=== PATIENT | male | born 1955 | race Hispanic/Latino ===

== ENCOUNTER → 2018-04-11 | Outpatient (CLI) | payer OTHER | END | disposition home or self-care (01) | LOC: SHCH 08:05 | PROVIDERS: ATTEND Internal Medicine Cardiovascular Disease | DX: I48.2 Chronic atrial fibrillation (principal); I25.2 Old myocardial infarction; I50.42 Chronic combined systolic (congestive) and diastolic (congestive) heart failure | CPT/HCPCS: 78481; A9512; J1644 ==

== ENCOUNTER 2018-09-01 07:12 | Inpatient (IN) | payer OTHER | END 2018-09-06 13:48 | disposition home or self-care (01) | LOC: DAH 07:12 → DAHIP 07:13 → 2CH 12:57 | PROC: 4A023N6 Measurement of Cardiac Sampling and Pressure, Right Heart, Percutaneous Approach (ICD-10-PCS; principal; ~2018-09-01) | PROC: B2141ZZ Fluoroscopy of Right Heart using Low Osmolar Contrast (ICD-10-PCS; ~2018-09-01) | PROC: B2101ZZ Fluoroscopy of Single Coronary Artery using Low Osmolar Contrast (ICD-10-PCS; ~2018-09-01) | DX: I27.20 Pulmonary hypertension, unspecified (principal); I50.41 Acute combined systolic (congestive) and diastolic (congestive) heart failure ==

== ENCOUNTER 2019-04-02 05:46 | Observation (INO) | payer OTHER ==
[2019-03-31 09:42] LABS: BASOPHILS % (AUTO) 0.5 % (0.0-5.0); EOSINOPHILS % (AUTO) 1.1 % (0.0-8.0); HEMATOCRIT 36.3 % (42-54); LYMPHOCYTES % (AUTO) 15.3 % (21.0-51.0); MEAN CORPUSCULAR HEMOGLOBIN 28.7 pg (27.0-33.0); MEAN CORPUSCULAR HGB CONC 33.5 g/dL (32.0-36.0); MEAN CORPUSCULAR VOLUME 85.7 fL (79-99); MONOCYTES % (AUTO) 9.5 % (3.0-13.0); NEUTROPHILS % (AUTO) 73.6 % (40.0-77.0); PLATELET COUNT (AUTO) 263 K/uL (130-400); RED BLOOD CELL COUNT(AUTO) 4.24 MIL/uL (4.50-6.20); RED CELL DISTRIBUTION WIDTH 15.6 % (11.0-15.5); WHITE BLOOD COUNT (AUTO) 8.3 K/uL (4.8-10.8)
[2019-03-31 09:46] VITALS: BP 90/52
[2019-03-31 09:51] LABS: POTASSIUM 4.4 mmol/L (3.5-5.1)
[2019-03-31 09:56] LABS: INR 1.17 (0.85-1.15); PARTIAL THROMBOPLASTIN TIME 27.6 SEC (26.3-35.5); PROTHROMBIN TIME 12.2 SEC (9.6-11.6)
--- NOTE | 2019-04-01 09:40 | NUR ---
ABNORMAL PT,INR REPORTED TO PA, PT IS TO STOP XARELTO 3 DAYS BEFORE PROCEDURE ORDERED,NO NEW ORDERS, PROCEED WITH PROCEDURE.
[2019-04-02] VITALS (10 sets, daily range): BP systolic 79–91; BP diastolic 48–56
[~2019-04-02] VITALS: Ht 160 cm; Wt 69.4 kg
[~2019-04-02 05:46] MED LIST: AEC81 PO; ATOR40TA71 PO; CARV6.2579 PO; FAMO20TA8 PO; FLUT1DIS3 IH; FURO40TA5 PO; METF-526 PO; OMEP20TA25 PO; RIVA20TA PO; SACU1TAB PO; SODIUM CHLORIDE 0.9% 500ML 500 ML IV SCH; SPIR25TA6 PO
[2019-04-02] MEDS ORDERED: CEFAZOLIN SODIUM 1 GM VIAL IVP SCH (06:00)
[2019-04-02] MEDS ORDERED: SODIUM CHLORIDE 0.9% 1000ML 1,000 ML IV ONE (06:16)
[2019-04-02] MEDS ORDERED: MIDAZOLAM HCL 1 MG/ML 2ML VIAL ONE ×2 (07:18→08:33)
[2019-04-02] MEDS ORDERED: CEFAZOLIN SODIUM 1 GM VIAL ONE (07:18)
[2019-04-02] MEDS ORDERED: LIDOCAINE HCL 1% MDV 50ML VIAL ONE (07:19)
[2019-04-02] MEDS ORDERED: BUPIVACAINE/PF 0.25% 30ML VIAL IJ ONE (07:19)
[2019-04-02] MEDS ORDERED: MEPERIDINE-PF 25 MG/ML SYG ONE ×2 (07:19→08:33)
[2019-04-02] MEDS ORDERED: TRAM50TA4 PO (09:40)
[2019-04-02] MEDS ORDERED: ACETAMINOPHEN-CODEINE 300/30MG TAB PO PRN (09:45)
--- NOTE | 2019-04-02 09:46 | NUR ---
POST-PROCEDURE RECEIVED FROM HOUSEKEEPING SUPERVISOR S/P DUAL ICD INSERTION TO DAY 14. AWAKE IN NO ACUTE DISTRESS. CONNECTED TO CONTINUOUS CARDIOPULMONARY MONITORING. DRESSING TO LEFT CHEST WALL WITH SCANT SANGINOUS DRAINAGE/AREA MARKED. SLING IN PLACE TO LEFT ARM. PT INSTRUCTED TO NOT ELEVATE LEFT ARM ABOVE SHOULDER LEVEL FOR 6 WEEKS. VERBALIZED UNDERSTANDING. SIDE RAILS UP X2, BED IN LOWEST POSITION, AND CALL LIGHT W/IN REACH.
[2019-04-02] MEDS: PANTOPRAZOLE SODIUM 40 MG TABLET.DR PO SCH (10:03)
[2019-04-02] MEDS ORDERED: VALSARTAN PO SCH (10:05)
[2019-04-02] MEDS ORDERED: SACUBITRIL PO SCH (10:05)
--- NOTE | 2019-04-02 10:30 | NUR ---
DIET ATE 100% OF BREAKFAST.
--- NOTE | 2019-04-02 10:30 | NUR ---
HYPOTENSION B/P 79/48, ASYMPTOMATIC. PT AAOX3. [facility]. CHRISTIANO MCCALL NOTIFIED. ORDERED TO CONTINUE TO MONITOR PT.
--- NOTE | 2019-04-02 11:00 | NUR ---
HYPOTENSION NOLAN HUANG UPDATED ON B/P . NO NEW ORDERS RECEIVED. PT ASYMPTOMATIC. AAOX3.
[2019-04-02] MEDS: ALBUTEROL SULFATE 0.083% 2.5 MG/3 ML INH IH SCH ×2 (12:08→19:11)
--- NOTE | 2019-04-02 12:33 | NUR ---
CONSULT NOLAN MOSQUEDA IN TO SEE PATIENT. PT UPDATED ON PLAN OF CARE. NOTIFIED OF B/P'S 79-80'S/40-50'S. NO NEW ORDERS RECEIVED. PT ASYMPTOMATIC. AAOX3.
--- NOTE | 2019-04-02 13:29 | NUR ---
REPORT REPORT CALLED TO FRITZ JOHNSTON USING SBAR/VERBALIZED UNDERSTANDING.
--- NOTE | 2019-04-02 13:30 | NUR ---
TRANSFER TRANSFERRED TO ROOM 230 VIA BED. AWAKE IN NO ACUTE DISTRESS. DRESSING TO LEFT CHEST WALL DRY AND INTACT/SMALL AMOUNT OF SANGINOUS DRAINAGE MARKED, SITE SOFT. DENIES PAIN.
--- NOTE | 2019-04-02 14:10 | NUR ---
PATIENT AWAKE AND ALERT, FAMILY AT BEDSIDE, SLING TO LEFT ARM D/T ICD PLACEMENT, DRESSING IN PLACE WITH SCANT AMOUNT OF SEROSANGUINEOUS DRAINAGE, DENIES PAIN OR DISCOMFORT AT THIS TIME. BED TO LOWEST LEVEL AND LOCKED, INSTRUCTED HOW TO USE CALL LIGHT FOR ASSISTANCE, TELEMETRY AND BED ALARM ON.
--- NOTE | 2019-04-02 15:30 | NUR ---
PT BP AT 83/49, PATIENT RESTING, LAYING IN BED WITH EYES CLOSED, PATIENT DENIES ANY DISCOMFORT OR PAIN OR DIZZINESS, PT STATES HE USUALLY HAS LOW BLOOD PRESSURE.
[2019-04-02] MEDS: INSULIN HUMULIN R 100 UNIT/ML 3ML SQ SCH ×2 (16:30→21:00)
[2019-04-02] MEDS: METFORMIN HCL 500 MG TABLET PO SCH (17:00)
[2019-04-02] MEDS: BUDESONIDE 0.5 MG/2 ML INH IH SCH (19:23)
[2019-04-02] MEDS ORDERED: SUB TO BREO ELLIPTA 100MCG/25MCG PER P&T IH SCH (21:00)
[2019-04-02] MEDS ORDERED: ATORVASTATIN CALCIUM 40 MG TABLET PO SCH (21:00)
[2019-04-02] MEDS: SPIRONOLACTONE 25 MG TAB PO SCH (21:00)
[2019-04-03 00:07] VITALS: BP 101/63
[2019-04-03] MEDS: FAMOTIDINE 20MG TAB 20 MG TAB PO SCH ×2 (03:26→09:39)
[2019-04-03] MEDS: CARVEDILOL 6.25 MG TABLET PO SCH ×2 (03:26→09:00)
[2019-04-03 04:03] VITALS: BP 96/51
[2019-04-03 04:27] LABS: BASOPHILS % (AUTO) 0.4 % (0.0-5.0); EOSINOPHILS % (AUTO) 1.1 % (0.0-8.0); MEAN CORPUSCULAR HEMOGLOBIN 28.9 pg (27.0-33.0); MEAN CORPUSCULAR HGB CONC 33.8 g/dL (32.0-36.0); MEAN CORPUSCULAR VOLUME 85.6 fL (79-99); MONOCYTES % (AUTO) 8.9 % (3.0-13.0); NEUTROPHILS % (AUTO) 71.6 % (40.0-77.0); PLATELET COUNT (AUTO) 247 K/uL (130-400); RED BLOOD CELL COUNT(AUTO) 3.98 MIL/uL (4.50-6.20); RED CELL DISTRIBUTION WIDTH 15.9 % (11.0-15.5); WHITE BLOOD COUNT (AUTO) 6.9 K/uL (4.8-10.8)
[2019-04-03 04:36] LABS: POTASSIUM 3.9 mmol/L (3.5-5.1)
[2019-04-03] MEDS: ALBUTEROL SULFATE 0.083% 2.5 MG/3 ML INH IH SCH ×2 (06:01→11:18)
[2019-04-03] MEDS: BUDESONIDE 0.5 MG/2 ML INH IH SCH (06:01)
[2019-04-03] MEDS: INSULIN HUMULIN R 100 UNIT/ML 3ML SQ SCH (06:08)
[2019-04-03] MEDS: PANTOPRAZOLE SODIUM 40 MG TABLET.DR PO SCH (06:37)
--- NOTE | 2019-04-03 07:24 | NUR ---
refuse laborer team at bedside to picker and packer patient for procedure.
[2019-04-03 07:43] VITALS: BP 92/57
[2019-04-03] MEDS ORDERED: FUROSEMIDE 40 MG TABLET PO SCH (09:00)
[2019-04-03] MEDS ORDERED: ASPIRIN 81 MG EC TAB PO SCH (09:00)
[2019-04-03] MEDS: SPIRONOLACTONE 25 MG TAB PO SCH (09:40)
[2019-04-03] MEDS: METFORMIN HCL 500 MG TABLET PO SCH (09:42)
[2019-04-03 12:04] VITALS: BP 102/56
== END 2019-04-03 12:12 | disposition home or self-care (01) ==
LOC: DAH 05:46 → DAHIP 05:47 → 2AH 13:58
PROVIDERS: ADMIT Internal Medicine; ATTEND Internal Medicine
DX: I25.5 Ischemic cardiomyopathy (principal); I25.10 Atherosclerotic heart disease of native coronary artery without angina pectoris; I11.0 Hypertensive heart disease with heart failure; I50.42 Chronic combined systolic (congestive) and diastolic (congestive) heart failure; E11.9 Type 2 diabetes mellitus without complications; I48.91 Unspecified atrial fibrillation; I35.0 Nonrheumatic aortic (valve) stenosis; Z86.73 Personal history of transient ischemic attack (TIA), and cerebral infarction without residual deficits; Z95.1 Presence of aortocoronary bypass graft; Z95.2 Presence of prosthetic heart valve; Z79.01 Long term (current) use of anticoagulants; Z95.810 Presence of automatic (implantable) cardiac defibrillator; Z79.82 Long term (current) use of aspirin; Z79.4 Long term (current) use of insulin; Z79.899 Other long term (current) drug therapy
CPT/HCPCS: 33249; 36415 ×2; 71045; 80048 ×2; 82948 ×4; 85025 ×2; 85610; 85730; 94640 ×6; 94664; A4215; A4216; A4221; A4222; A4223 ×3; A4606; A4663; C1721; C1895 ×2; G0378 ×30; J0690; J2175 ×2; J2250 ×2; J3490 ×2; J7030; 99156; 99157

== ENCOUNTER 2020-12-14 05:58 | Day surgery (SDC) | payer OTHER ==
[2020-12-12 11:30] VITALS: BP 110/59
[2020-12-12 12:40] LABS: BASOPHILS % (AUTO) 0.6 % (0.0-5.0); EOSINOPHILS % (AUTO) 2.6 % (0.0-8.0); HEMATOCRIT 40.5 % (42-54); LYMPHOCYTES % (AUTO) 12.4 % (21.0-51.0); MEAN CORPUSCULAR HEMOGLOBIN 27.2 pg (27.0-33.0); MEAN CORPUSCULAR HGB CONC 31.6 g/dL (32.0-36.0); MEAN CORPUSCULAR VOLUME 86.2 fL (79-99); MONOCYTES % (AUTO) 9.5 % (3.0-13.0); NEUTROPHILS % (AUTO) 74.6 % (40.0-77.0); PLATELET COUNT (AUTO) 167 K/uL (130-400); RED CELL DISTRIBUTION WIDTH 16.1 % (11.0-15.5); WHITE BLOOD COUNT (AUTO) 6.9 K/uL (4.8-10.8)
[2020-12-12 12:48] LABS: CREATININE 1.2 mg/dL (0.5-1.5); POTASSIUM 3.8 mmol/L (3.5-5.1)
[2020-12-12 12:49] LABS: APPEARANCE,URINE Clear (CLEAR); BILIRUBIN,URINE Negative (NEGATIVE); COLOR,URINE Yellow (YELLOW); GLUCOSE, URINE (UA) >=1000 mg/dL (NEGATIVE); KETONES,URINE Negative (NEGATIVE); LEUKOCYTE ESTERASE ,URINE Negative (NEGATIVE); NITRATE,URINE Negative (NEGATIVE); OCCULT BLOOD,URINE Negative (NEGATIVE); PH,URINE 5.5 (5.0-8.0); PROTEIN,URINE Negative (NEGATIVE); UROBILINOGEN,URINE 0.2 mg/dL (0.2-1.0)
[2020-12-12 12:50] LABS: INR 1.21 (0.85-1.15)
[2020-12-12 12:52] LABS: PARTIAL THROMBOPLASTIN TIME 26.4 SEC (26.3-35.5)
[2020-12-12 12:56] LABS: BACTERIA,URINE None Seen /HPF (None Seen); RBC,URINE None Seen /HPF (0-1); SQUAMOUS EPITHELIAL CELL,UR Rare /HPF (0-2); WBC,URINE 0-1 /HPF (0-1)
[2020-12-14] VITALS (11 sets, daily range): BP systolic 101–150; BP diastolic 57–95
[~2020-12-14] VITALS: Ht 165.1 cm; Wt 74.6 kg
[~2020-12-14 05:58] MED LIST changes: +DAPA5TAB PO; -FAMO20TA8 PO; -SODIUM CHLORIDE 0.9% 500ML 500 ML IV SCH
[2020-12-14] MEDS ORDERED: 0.9%NACL 1000ML 1,000 ML IV SCH (08:00)
[2020-12-14] MEDS ORDERED: SODIUM BICARB 50MEQ 50ML VIAL 50 ML ONE (10:50)
[2020-12-14] MEDS ORDERED: NITROGLYCERIN 2 MG VIAL IV ONE (10:50)
[2020-12-14] MEDS ORDERED: FENTANYL CITRATE PF 50 MCG/1 ML 2ML VIAL ONE (10:51)
[2020-12-14] MEDS ORDERED: LIDOCAINE HCL 400MG/20ML VIAL ONE (10:51)
[2020-12-14] MEDS ORDERED: MIDAZOLAM HCL 1 MG/ML 2ML VIAL ONE (10:51)
[2020-12-14] MEDS ORDERED: FURO40TA5 PO (10:53)
[2020-12-14] MEDS ORDERED: HEPARIN 10,000 UNIT/10ML (1,000 UNIT/ML) VIAL ONE (11:56)
== END 2020-12-14 16:00 | disposition home or self-care (01) ==
LOC: DAH 05:58
PROVIDERS: ATTEND Internal Medicine Cardiovascular Disease
DX: I11.0 Hypertensive heart disease with heart failure (principal); I50.42 Chronic combined systolic (congestive) and diastolic (congestive) heart failure; I27.20 Pulmonary hypertension, unspecified; I25.10 Atherosclerotic heart disease of native coronary artery without angina pectoris; E11.9 Type 2 diabetes mellitus without complications; I44.0 Atrioventricular block, first degree; I45.10 Unspecified right bundle-branch block; I48.91 Unspecified atrial fibrillation; I25.2 Old myocardial infarction; Z79.82 Long term (current) use of aspirin; Z79.84 Long term (current) use of oral hypoglycemic drugs; Z79.899 Other long term (current) drug therapy; Z79.01 Long term (current) use of anticoagulants; Z86.73 Personal history of transient ischemic attack (TIA), and cerebral infarction without residual deficits; Z95.2 Presence of prosthetic heart valve; Z95.1 Presence of aortocoronary bypass graft; Z82.49 Family history of ischemic heart disease and other diseases of the circulatory system
CPT/HCPCS: 36415 ×2; 70450; 71045 ×2; 80048; 80053; 81001; 82550; 82948 ×3; 83874; 83880; 84484; 85025 ×2; 85610 ×2; 85730 ×2; 93005 ×2; 93451; 99285; A4215; A4216; A4221; A4222; A4223 ×3; A4606; A4663; C1894 ×3; J1644 ×2; J3490 ×2; J7030; J2250; J3010

== ENCOUNTER 2020-12-14 07:56 | Emergency (ER) | payer OTHER ==
[~2020-12-14] VITALS: Ht 165.1 cm; Wt 73.9 kg
[2020-12-14 08:05] VITALS: BP 142/93
[2020-12-14 08:41] VITALS: BP 129/83
[2020-12-14 08:43] LABS: BASOPHILS % (AUTO) 0.5 % (0.0-5.0); EOSINOPHILS % (AUTO) 12.5 % (0.0-8.0); LYMPHOCYTES % (AUTO) 13.7 % (21.0-51.0); MEAN CORPUSCULAR HEMOGLOBIN 27.2 pg (27.0-33.0); MEAN CORPUSCULAR HGB CONC 30.9 g/dL (32.0-36.0); MEAN CORPUSCULAR VOLUME 87.9 fL (79-99); MONOCYTES % (AUTO) 9.4 % (3.0-13.0); NEUTROPHILS % (AUTO) 63.6 % (40.0-77.0); PLATELET COUNT (AUTO) 157 K/uL (130-400); RED BLOOD CELL COUNT(AUTO) 4.89 MIL/uL (4.50-6.20); WHITE BLOOD COUNT (AUTO) 7.8 K/uL (4.8-10.8)
[2020-12-14 08:54] LABS: CARBON DIOXIDE 26 mmol/L (21-32); CHLORIDE 105 mmol/L (101-111); CREATININE 1.1 mg/dL (0.5-1.5); GLOMERULAR FILTR. RATE CALC 71 mL/min (>60); GLUCOSE,RANDOM 132 mg/dL (70-105); POTASSIUM 4.3 mmol/L (3.5-5.1); SODIUM SERUM 140 mmol/L (136-145); UREA NITROGEN, BLOOD 27 mg/dL (7-18)
[2020-12-14 08:56] LABS: INR 1.24 (0.85-1.15); PROTHROMBIN TIME 13.3 SEC (9.6-11.6)
[2020-12-14 08:57] LABS: PARTIAL THROMBOPLASTIN TIME 26.7 SEC (26.3-35.5)
[2020-12-14 09:05] LABS: ALANINE AMINOTRANSFERASE 34 U/L (12-78); ALBUMIN 3.8 g/dL (3.5-5.0); ASPARTATE AMINOTRANSFERASE 30 U/L (10-37); BILIRUBIN,TOTAL 0.8 mg/dL (0.2-1.0); CREATINE KINASE, TOTAL 154 U/L (21-232); MYOGLOBIN 37 ng/mL (10-92); TOTAL PROTEIN, SERUM 7.4 g/dL (6.0-8.3); TROPONIN I < 0.04 ng/mL (0.00-0.06)
[2020-12-14 09:49] LABS: B-TYPE NATRIURETIC PEPTIDE 1400 pg/mL (0-100)
[2020-12-14] MEDS ORDERED: FURO40TA5 PO ×2 (10:53)
== END 2020-12-14 09:59 | disposition home or self-care (01) ==
LOC: EDH 07:56
DX: F41.1 Generalized anxiety disorder (principal); R41.0 Disorientation, unspecified; R94.31 Abnormal electrocardiogram [ECG] [EKG]; E11.9 Type 2 diabetes mellitus without complications; E78.00 Pure hypercholesterolemia, unspecified; I10 Essential (primary) hypertension; I25.10 Atherosclerotic heart disease of native coronary artery without angina pectoris; J44.9 Chronic obstructive pulmonary disease, unspecified; Z79.82 Long term (current) use of aspirin; Z79.51 Long term (current) use of inhaled steroids; Z79.84 Long term (current) use of oral hypoglycemic drugs; Z79.899 Other long term (current) drug therapy; Z86.73 Personal history of transient ischemic attack (TIA), and cerebral infarction without residual deficits; Z95.1 Presence of aortocoronary bypass graft; Z95.2 Presence of prosthetic heart valve; Z95.810 Presence of automatic (implantable) cardiac defibrillator
CPT/HCPCS: 36415; 71045; 80053; 82550; 83874; 83880; 84484; 85025; 85610; 85730; 93005

== ENCOUNTER → 2022-07-09 | Outpatient (CLI) | payer OTHER ==
[~2022-07-09] MED LIST changes: +ATOR-2 PO; -ATOR40TA71 PO; +BUME1TAB6 PO; -DAPA5TAB PO; +DOXY100C5 PO; +DRON400T7 PO; +EMPA25TA PO; -FURO40TA5 PO; +MONT-39 PO; +OMEP20TA20 PO; -OMEP20TA25 PO
[2022-07-09 12:49] LABS: CREATININE 1.4 mg/dL (0.5-1.5)
== END | disposition home or self-care (01) ==
LOC: LAB 10:18
PROVIDERS: ATTEND Internal Medicine Cardiovascular Disease
DX: I50.22 Chronic systolic (congestive) heart failure (principal)
CPT/HCPCS: 36415; 80048; 83880

== ENCOUNTER → 2022-07-23 | Outpatient (CLI) | payer OTHER ==
[2022-07-23 13:00] LABS: CREATININE 1.4 mg/dL (0.5-1.5); POTASSIUM 3.3 mmol/L (3.5-5.1)
== END | disposition home or self-care (01) ==
LOC: LAB 09:20
PROVIDERS: ATTEND Internal Medicine Cardiovascular Disease
DX: I50.42 Chronic combined systolic (congestive) and diastolic (congestive) heart failure (principal)
CPT/HCPCS: 36415; 80048; 83880

== ENCOUNTER 2022-08-17 18:37 | Inpatient (IN) | payer OTHER ==
[~2022-08-17] VITALS: Ht 165.1 cm; Wt 68.8 kg
[2022-08-17] MEDS ORDERED: ONDANSETRON 4MG INJ IV PRN (21:30)
[2022-08-17] MEDS ORDERED: MORPHINE 4 MG SYG IV PRN (21:30)
[2022-08-17] MEDS ORDERED: MORPHINE 2 MG SYG IV PRN (21:30)
[2022-08-17] MEDS ORDERED: ACETAMINOPHEN 325 MG TAB PO PRN ×2 (21:30)
[2022-08-17] MEDS: FUROSEMIDE 40MG VIAL IVP SCH (22:29)
[2022-08-17] MEDS: MILRINONE-D5W 20 MG/100 ML 100 ML IV SCH (22:30)
[2022-08-17 22:55] LABS: BASOPHILS % (AUTO) 0.6 % (0.0-5.0); HEMATOCRIT 33.6 % (42-54); LYMPHOCYTES % (AUTO) 19.6 % (21.0-51.0); MEAN CORPUSCULAR HEMOGLOBIN 25.1 pg (27.0-33.0); MEAN CORPUSCULAR HGB CONC 32.1 g/dL (32.0-36.0); MONOCYTES % (AUTO) 11.5 % (3.0-13.0); NEUTROPHILS % (AUTO) 67.1 % (40.0-77.0); PLATELET COUNT (AUTO) 105 K/uL (130-400); RED BLOOD CELL COUNT(AUTO) 4.31 MIL/uL (4.50-6.20); RED CELL DISTRIBUTION WIDTH 19.9 % (11.0-15.5); WHITE BLOOD COUNT (AUTO) 5.2 K/uL (4.8-10.8)
[2022-08-17] MEDS ORDERED: DEXTROSE 50%-WATER 50 ML DISP.SYRIN IV PRN (23:00)
[2022-08-17] MEDS ORDERED: GLUCAGON 1MG KIT 1 MG ML IM PRN (23:00)
[2022-08-17] MEDS ORDERED: ATOR40TA71 PO (23:14)
[2022-08-17 23:17] LABS: B-TYPE NATRIURETIC PEPTIDE 1000 pg/mL (0-100)
[2022-08-17 23:22] LABS: CREATININE 1.8 mg/dL (0.5-1.5); POTASSIUM 3.4 mmol/L (3.5-5.1)
[2022-08-17 23:25] LABS: INR 2.32 (0.85-1.15); PROTHROMBIN TIME 24.1 SEC (9.6-11.6)
[2022-08-17 23:27] LABS: PARTIAL THROMBOPLASTIN TIME 44.8 SEC (26.3-35.5)
[2022-08-17 23:30] LABS: ALBUMIN 3.8 g/dL (3.5-5.0); MAGNESIUM 1.9 mg/dL (1.80-2.40); PHOSPHORUS 3.9 mg/dL (2.5-4.9); TOTAL PROTEIN, SERUM 6.8 g/dL (6.0-8.3)
[2022-08-17 23:40] VITALS: BP 133/76
[2022-08-18] LABS: APPEARANCE,URINE CLEAR (CLEAR); BILIRUBIN,URINE NEGATIVE (NEGATIVE); COLOR,URINE COLORLESS (YELLOW); GLUCOSE, URINE (UA) 500 mg/dL (NEGATIVE); KETONES,URINE NEGATIVE (NEGATIVE); LEUKOCYTE ESTERASE ,URINE NEGATIVE Leu/uL (NEGATIVE); NITRATE,URINE NEGATIVE (NEGATIVE); OCCULT BLOOD,URINE NEGATIVE (NEGATIVE); PH,URINE 5.5 (5.0-8.0); PROTEIN,URINE NEGATIVE (NEGATIVE); UROBILINOGEN,URINE 0.2 mg/dL (0.2-1.0)
[2022-08-18 00:11] LABS: RBC,URINE 0-1 /HPF (0-1); SQUAMOUS EPITHELIAL CELL,UR RARE /HPF (0-2)
[2022-08-18 02:30] LABS: BASOPHILS % (AUTO) 0.3 % (0.0-5.0); HEMATOCRIT 32.3 % (42-54); MEAN CORPUSCULAR HEMOGLOBIN 25.5 pg (27.0-33.0); MEAN CORPUSCULAR HGB CONC 31.9 g/dL (32.0-36.0); MONOCYTES % (AUTO) 12.6 % (3.0-13.0); NEUTROPHILS % (AUTO) 65.8 % (40.0-77.0); PLATELET COUNT (AUTO) 127 K/uL (130-400); RED BLOOD CELL COUNT(AUTO) 4.04 MIL/uL (4.50-6.20); RED CELL DISTRIBUTION WIDTH 19.7 % (11.0-15.5); WHITE BLOOD COUNT (AUTO) 5.9 K/uL (4.8-10.8)
[2022-08-18 02:44] LABS: CREATININE 1.7 mg/dL (0.5-1.5)
[2022-08-18 03:08] LABS: HEMOGLOBIN A1C 6.6 % (4.0-6.0)
[2022-08-18 04:46] VITALS: BP 101/72
[2022-08-18] MEDS: FUROSEMIDE 40MG VIAL IVP SCH ×3 (05:19→19:12)
[2022-08-18] MEDS: INSULIN HUMULIN R 100 UNIT/ML 3ML SQ SCH ×4 (07:30→21:00)
[2022-08-18 07:48] VITALS: BP 102/65
[2022-08-18] MEDS: RIVAROXABAN 20 MG TABLET PO SCH (08:24)
[2022-08-18] MEDS: FAMOTIDINE 20MG TAB PO SCH (08:24)
[2022-08-18] MEDS: CARVEDILOL 6.25 MG TABLET PO SCH ×2 (08:25→21:26)
[2022-08-18] MEDS: ASPIRIN 81 MG EC TAB PO SCH (08:25)
[2022-08-18] MEDS: DRONEDARONE HYDROCHLORIDE 400 MG TABLET PO SCH ×2 (08:26→21:26)
[2022-08-18] MEDS: KCL 20 MEQ ERTAB PO SCH ×3 (08:33→21:25)
[2022-08-18] MEDS ORDERED: SACUBITRIL/VALSARTAN 1 EACH TABLET PO SCH (09:00)
[2022-08-18] MEDS ORDERED: ENOXAPARIN SODIUM 40 MG/0.4 ML SYRINGE SQ SCH (09:00)
[2022-08-18] MEDS ORDERED: FUROSEMIDE 40MG VIAL IVP SCH (09:00)
[2022-08-18] MEDS ORDERED: EMPAGLIFLOZIN 25MG TABLET PO SCH (09:00)
[2022-08-18] MEDS ORDERED: NON-FORMULARY MEDICATION 1 EACH (Metformin HCl (Metformin HCl ER) 500 MG) PO SCH (09:00)
[2022-08-18] MEDS: PANTOPRAZOLE 40 MG TAB DR PO SCH (10:05)
[2022-08-18] MEDS: FLUTICASONE/VILANTEROL 1 EACH AER.POW.BA IH SCH ×2 (10:05→21:27)
[2022-08-18 11:55] VITALS: BP 91/39
[2022-08-18 14:15] VITALS: BP 82/53
[2022-08-18 16:00] VITALS: BP 94/69
[2022-08-18] MEDS: MILRINONE-D5W 20 MG/100 ML 100 ML IV SCH (18:33)
[2022-08-18 20:00] VITALS: BP 104/67
[2022-08-18] MEDS: MONTELUKAST SODIUM 10 MG TAB PO SCH (21:25)
[2022-08-18] MEDS: ATORVASTATIN 40 MG TABLET PO SCH (21:26)
[2022-08-18] MEDS: SACUBITRIL/VALSARTAN 1 EACH TABLET PO SCH (22:55)
[2022-08-19] VITALS: BP 113/73
[2022-08-19 04:38] VITALS: BP 94/64
[2022-08-19 04:48] LABS: BASOPHILS % (AUTO) 0.4 % (0.0-5.0); HEMATOCRIT 33.2 % (42-54); LYMPHOCYTES % (AUTO) 18.4 % (21.0-51.0); MEAN CORPUSCULAR HEMOGLOBIN 25.5 pg (27.0-33.0); MEAN CORPUSCULAR HGB CONC 32.2 g/dL (32.0-36.0); MONOCYTES % (AUTO) 12.2 % (3.0-13.0); NEUTROPHILS % (AUTO) 67.6 % (40.0-77.0); PLATELET COUNT (AUTO) 131 K/uL (130-400); RED CELL DISTRIBUTION WIDTH 19.8 % (11.0-15.5); WHITE BLOOD COUNT (AUTO) 5.2 K/uL (4.8-10.8)
[2022-08-19 05:00] LABS: CREATININE 1.3 mg/dL (0.5-1.5); PHOSPHORUS 3.5 mg/dL (2.5-4.9); POTASSIUM 3.8 mmol/L (3.5-5.1)
[2022-08-19] MEDS: PANTOPRAZOLE 40 MG TAB DR PO SCH (06:30)
[2022-08-19] MEDS: INSULIN HUMULIN R 100 UNIT/ML 3ML SQ SCH ×4 (06:31→20:41)
[2022-08-19] MEDS: MILRINONE-D5W 20 MG/100 ML 100 ML IV SCH (06:35)
[2022-08-19 08:30] VITALS: BP 124/75
[2022-08-19] MEDS: FAMOTIDINE 20MG TAB PO SCH (09:02)
[2022-08-19] MEDS: FLUTICASONE/VILANTEROL 1 EACH AER.POW.BA IH SCH ×2 (09:02→20:40)
[2022-08-19] MEDS: CARVEDILOL 6.25 MG TABLET PO SCH (09:03)
[2022-08-19] MEDS: DRONEDARONE HYDROCHLORIDE 400 MG TABLET PO SCH ×2 (09:03→20:39)
[2022-08-19] MEDS: RIVAROXABAN 20 MG TABLET PO SCH (09:03)
[2022-08-19] MEDS: SACUBITRIL/VALSARTAN 1 EACH TABLET PO SCH ×2 (09:04→20:39)
[2022-08-19] MEDS: KCL 20 MEQ ERTAB PO SCH ×3 (09:04→20:40)
[2022-08-19] MEDS: ASPIRIN 81 MG EC TAB PO SCH (09:04)
[2022-08-19] MEDS ORDERED: METOPROLOL SUCCINATE 50 MG TAB.SR.24H PO ONE (12:30)
[2022-08-19] MEDS ORDERED: FUROSEMIDE 40 MG TABLET PO SCH (12:30)
[2022-08-19 12:31] VITALS: BP 100/64
[2022-08-19 16:59] VITALS: BP 102/69
[2022-08-19 20:10] VITALS: BP 100/76
[2022-08-19] MEDS: ATORVASTATIN 40 MG TABLET PO SCH (20:39)
[2022-08-19] MEDS: MONTELUKAST SODIUM 10 MG TAB PO SCH (20:40)
[2022-08-20 00:04] VITALS: BP 104/78
[2022-08-20 03:54] LABS: BASOPHILS % (AUTO) 0.7 % (0.0-5.0); HEMATOCRIT 36.8 % (42-54); LYMPHOCYTES % (AUTO) 18.1 % (21.0-51.0); MEAN CORPUSCULAR HGB CONC 30.7 g/dL (32.0-36.0); MEAN CORPUSCULAR VOLUME 81.4 fL (79-99); PLATELET COUNT (AUTO) 115 K/uL (130-400); RED BLOOD CELL COUNT(AUTO) 4.52 MIL/uL (4.50-6.20); RED CELL DISTRIBUTION WIDTH 20.2 % (11.0-15.5); WHITE BLOOD COUNT (AUTO) 5.8 K/uL (4.8-10.8)
[2022-08-20 04:07] LABS: CREATININE 1.4 mg/dL (0.5-1.5); POTASSIUM 5.1 mmol/L (3.5-5.1)
[2022-08-20 04:25] VITALS: BP 104/76
[2022-08-20] MEDS: INSULIN HUMULIN R 100 UNIT/ML 3ML SQ SCH ×2 (07:30→11:30)
[2022-08-20 08:28] VITALS: BP 114/85
[2022-08-20] MEDS ORDERED: METO50TA9 PO (08:35)
[2022-08-20] MEDS ORDERED: SACU1TAB PO (08:35)
[2022-08-20] MEDS ORDERED: FURO40TA7 PO (08:35)
[2022-08-20] MEDS ORDERED: EMPA10TA PO (08:35)
[2022-08-20] MEDS ORDERED: METOPROLOL SUCCINATE 50 MG TAB.SR.24H PO SCH (09:00)
[2022-08-20] MEDS ORDERED: EMPAGLIFLOZIN 10MG TABLET PO SCH (09:00)
[2022-08-20] MEDS ORDERED: FUROSEMIDE 40 MG TABLET PO SCH (09:00)
[2022-08-20] MEDS: FLUTICASONE/VILANTEROL 1 EACH AER.POW.BA IH SCH (10:05)
[2022-08-20] MEDS: ASPIRIN 81 MG EC TAB PO SCH (10:06)
[2022-08-20] MEDS: SACUBITRIL/VALSARTAN 1 EACH TABLET PO SCH (10:06)
[2022-08-20] MEDS: RIVAROXABAN 20 MG TABLET PO SCH (10:06)
[2022-08-20] MEDS: DRONEDARONE HYDROCHLORIDE 400 MG TABLET PO SCH (10:07)
[2022-08-20] MEDS: FAMOTIDINE 20MG TAB PO SCH (10:07)
[2022-08-20 12:00] VITALS: BP 112/77
== END 2022-08-20 15:10 | disposition home or self-care (01) | DRG 291 ==
LOC: EDH 18:37 → 4BH 18:38 → 2AH 19:37
PROVIDERS: ADMIT Internal Medicine; ATTEND Internal Medicine
DX: I13.0 Hypertensive heart and chronic kidney disease with heart failure and stage 1 through stage 4 chronic kidney disease, or unspecified chronic kidney disease (principal); I50.43 Acute on chronic combined systolic (congestive) and diastolic (congestive) heart failure; D68.69 Other thrombophilia; R18.8 Other ascites; I48.20 Chronic atrial fibrillation, unspecified; N17.9 Acute kidney failure, unspecified; Z20.822 Contact with and (suspected) exposure to COVID-19; K76.1 Chronic passive congestion of liver; E78.2 Mixed hyperlipidemia; I35.0 Nonrheumatic aortic (valve) stenosis; E87.6 Hypokalemia; I42.0 Dilated cardiomyopathy; E87.5 Hyperkalemia; I27.20 Pulmonary hypertension, unspecified; N18.31 Chronic kidney disease, stage 3a; E11.22 Type 2 diabetes mellitus with diabetic chronic kidney disease; Z95.3 Presence of xenogenic heart valve; Z79.01 Long term (current) use of anticoagulants; Z83.3 Family history of diabetes mellitus; Z86.73 Personal history of transient ischemic attack (TIA), and cerebral infarction without residual deficits; Z51.5 Encounter for palliative care; Z79.82 Long term (current) use of aspirin; Z79.84 Long term (current) use of oral hypoglycemic drugs; Z79.899 Other long term (current) drug therapy; Z95.1 Presence of aortocoronary bypass graft
CPT/HCPCS: 36415; 71045; 80048; 80053; 81001; 82948; 83036; 83605; 83735; 83880; 84100; 84484; 85025; 85610; 85730; 87040; 87635; G0378; J1940; J2260

== ENCOUNTER → 2022-09-07 | Outpatient (CLI) | payer OTHER ==
[~2022-09-07] MED LIST changes: -ATOR-2 PO; +ATOR40TA71 PO; -BUME1TAB6 PO; -CARV6.2579 PO; -DOXY100C5 PO; +EMPA10TA PO; -EMPA25TA PO; +FURO40TA7 PO; +METO50TA9 PO
[2022-09-07 12:23] LABS: CREATININE 1.7 mg/dL (0.5-1.5); POTASSIUM 3.4 mmol/L (3.5-5.1)
== END | disposition home or self-care (01) ==
LOC: LAB 09:48
PROVIDERS: ATTEND Internal Medicine Cardiovascular Disease
DX: I50.22 Chronic systolic (congestive) heart failure (principal)
CPT/HCPCS: 36415; 80048; 83880

== ENCOUNTER → 2022-10-15 | Outpatient (CLI) | payer OTHER ==
[~2022-10-15] MED LIST changes: +FURO80TA3 PO
[2022-10-15 12:45] LABS: CREATININE 1.5 mg/dL (0.5-1.5); POTASSIUM 4.6 mmol/L (3.5-5.1)
== END | disposition home or self-care (01) ==
LOC: LAB 09:21
PROVIDERS: ATTEND Internal Medicine Cardiovascular Disease
DX: I50.22 Chronic systolic (congestive) heart failure (principal)
CPT/HCPCS: 36415; 80048; 83880

== ENCOUNTER 2022-10-17 17:15 | Inpatient (IN) | payer OTHER ==
[~2022-10-17] VITALS: Ht 165.1 cm; Wt 60.1 kg
[~2022-10-17 17:15] MED LIST changes: -FURO80TA3 PO
[2022-10-17] MEDS ORDERED: POTASSIUM CHLORIDE 10% ELIXIR 20 MEQ/15 ML UDCUP PO PRN (17:30)
[2022-10-17] MEDS ORDERED: POTASSIUM CHLORIDE 20MEQ/100ML 100 ML IV PRN (17:30)
[2022-10-17] MEDS: FUROSEMIDE 40MG VIAL IV SCH (18:00)
[2022-10-17 18:06] LABS: BASOPHILS % (AUTO) 0.4 % (0.0-5.0); EOSINOPHILS % (AUTO) 0.5 % (0.0-8.0); HEMATOCRIT 35.8 % (42-54); LYMPHOCYTES % (AUTO) 10.1 % (21.0-51.0); MEAN CORPUSCULAR HEMOGLOBIN 24.6 pg (27.0-33.0); MEAN CORPUSCULAR HGB CONC 31.8 g/dL (32.0-36.0); MEAN CORPUSCULAR VOLUME 77.3 fL (79-99); MONOCYTES % (AUTO) 7.5 % (3.0-13.0); PLATELET COUNT (AUTO) 244 K/uL (130-400); RED BLOOD CELL COUNT(AUTO) 4.63 MIL/uL (4.50-6.20); RED CELL DISTRIBUTION WIDTH 22.8 % (11.0-15.5); WHITE BLOOD COUNT (AUTO) 7.8 K/uL (4.8-10.8)
[2022-10-17 18:17] LABS: CREATININE 1.7 mg/dL (0.5-1.5); POTASSIUM 4.1 mmol/L (3.5-5.1)
[2022-10-17 18:22] LABS: ALBUMIN 3.9 g/dL (3.5-5.0); MAGNESIUM 2.2 mg/dL (1.80-2.40); TOTAL PROTEIN, SERUM 7.3 g/dL (6.0-8.3)
[2022-10-17 18:29] LABS: B-TYPE NATRIURETIC PEPTIDE 1780 pg/mL (0-100)
[2022-10-17] MEDS ORDERED: SACU1TAB PO (20:41)
[2022-10-17] MEDS ORDERED: EMPA10TA PO (20:41)
[2022-10-17] MEDS ORDERED: RIVA20TA PO (20:41)
[2022-10-17] MEDS ORDERED: FURO80TA3 PO (20:41)
[2022-10-17] MEDS: MONTELUKAST SODIUM 10 MG TAB PO SCH (21:03)
[2022-10-17] MEDS: ATORVASTATIN 40 MG TABLET PO SCH (21:03)
[2022-10-17] MEDS: SACUBITRIL/VALSARTAN 1 EACH TABLET PO SCH (21:04)
[2022-10-17] MEDS: CARVEDILOL 6.25 MG TABLET PO SCH (21:04)
[2022-10-17 21:14] LABS: APPEARANCE,URINE CLEAR (CLEAR); BILIRUBIN,URINE NEGATIVE (NEGATIVE); COLOR,URINE COLORLESS (YELLOW); GLUCOSE, URINE (UA) 300 mg/dL (NEGATIVE); KETONES,URINE NEGATIVE (NEGATIVE); LEUKOCYTE ESTERASE ,URINE NEGATIVE Leu/uL (NEGATIVE); NITRATE,URINE NEGATIVE (NEGATIVE); OCCULT BLOOD,URINE NEGATIVE (NEGATIVE); PH,URINE 7.5 (5.0-8.0); PROTEIN,URINE NEGATIVE (NEGATIVE); UROBILINOGEN,URINE 0.2 mg/dL (0.2-1.0)
[2022-10-17 21:15] LABS: RBC,URINE 0-1 /HPF (0-1); WBC,URINE 0-1 /HPF (0-1)
[2022-10-17 22:34] VITALS: BP 99/68
[2022-10-18] MEDS: FUROSEMIDE 40MG VIAL IV SCH ×3 (01:57→17:33)
[2022-10-18 03:18] VITALS: BP 87/58
[2022-10-18 04:15] LABS: CREATININE 1.8 mg/dL (0.5-1.5); POTASSIUM 3.7 mmol/L (3.5-5.1)
[2022-10-18] MEDS: KCL 20 MEQ ERTAB PO PRN ×2 (06:22→09:10)
[2022-10-18 07:10] VITALS: BP 107/75
[2022-10-18] MEDS: ASPIRIN 81MG CHEW TAB PO SCH (09:01)
[2022-10-18] MEDS: EMPAGLIFLOZIN 10MG TABLET PO SCH (09:02)
[2022-10-18] MEDS: RIVAROXABAN 20 MG TABLET PO SCH (09:02)
[2022-10-18] MEDS: SACUBITRIL/VALSARTAN 1 EACH TABLET PO SCH ×2 (09:02→21:00)
[2022-10-18] MEDS: CARVEDILOL 6.25 MG TABLET PO SCH ×2 (09:02→20:31)
[2022-10-18] MEDS: PANTOPRAZOLE 40 MG TAB DR PO SCH (09:03)
[2022-10-18] MEDS: METOPROLOL SUCCINATE 50 MG TAB.SR.24H PO SCH (09:03)
[2022-10-18] MEDS: FLUTICASONE/VILANTEROL 1 EACH AER.POW.BA IH SCH (09:05)
[2022-10-18 11:06] VITALS: BP 86/62
[2022-10-18] MEDS: MILRINONE-D5W 20 MG/100 ML 100 ML IV SCH ×2 (11:23→23:03)
[2022-10-18] MEDS: INSULIN HUMULIN R 100 UNIT/ML 3ML SQ SCH ×3 (11:59→20:34)
[2022-10-18 16:12] VITALS: BP 94/57
[2022-10-18 19:05] VITALS: BP 93/51
[2022-10-18] MEDS: ATORVASTATIN 40 MG TABLET PO SCH (20:31)
[2022-10-18] MEDS: MONTELUKAST SODIUM 10 MG TAB PO SCH (20:31)
[2022-10-18 23:04] VITALS: BP 93/64
[2022-10-19] MEDS: FUROSEMIDE 40MG VIAL IV SCH ×3 (01:30→17:40)
[2022-10-19 03:40] VITALS: BP 100/73
[2022-10-19 04:01] LABS: CREATININE 1.3 mg/dL (0.5-1.5); POTASSIUM 3.8 mmol/L (3.5-5.1)
[2022-10-19] MEDS: INSULIN HUMULIN R 100 UNIT/ML 3ML SQ SCH ×4 (07:30→21:00)
[2022-10-19 08:09] VITALS: BP 119/70
[2022-10-19] MEDS: SACUBITRIL/VALSARTAN 1 EACH TABLET PO SCH ×2 (08:55→20:01)
[2022-10-19] MEDS: EMPAGLIFLOZIN 10MG TABLET PO SCH (08:56)
[2022-10-19] MEDS: METOPROLOL SUCCINATE 50 MG TAB.SR.24H PO SCH (09:00)
[2022-10-19] MEDS: FLUTICASONE/VILANTEROL 1 EACH AER.POW.BA IH SCH (09:00)
[2022-10-19] MEDS: CARVEDILOL 6.25 MG TABLET PO SCH ×2 (09:00→20:01)
[2022-10-19] MEDS: PANTOPRAZOLE 40 MG TAB DR PO SCH (09:00)
[2022-10-19] MEDS: RIVAROXABAN 20 MG TABLET PO SCH (09:01)
[2022-10-19] MEDS: ASPIRIN 81MG CHEW TAB PO SCH (09:02)
[2022-10-19] MEDS: MILRINONE-D5W 20 MG/100 ML 100 ML IV SCH (12:09)
[2022-10-19] MEDS: ADVAIR IH SCH ×2 (12:09→20:08)
[2022-10-19 12:16] VITALS: BP 94/61
[2022-10-19 16:27] VITALS: BP 120/72
[2022-10-19 19:18] VITALS: BP 110/68
[2022-10-19] MEDS: ATORVASTATIN 40 MG TABLET PO SCH (20:01)
[2022-10-19] MEDS: MONTELUKAST SODIUM 10 MG TAB PO SCH (20:02)
[2022-10-20 00:18] VITALS: BP 102/64
[2022-10-20] MEDS: FUROSEMIDE 40MG VIAL IV SCH ×2 (00:50→08:57)
[2022-10-20] MEDS: MILRINONE-D5W 20 MG/100 ML 100 ML IV SCH (00:50)
[2022-10-20 03:18] VITALS: BP 102/70
[2022-10-20 04:05] LABS: CREATININE 1.2 mg/dL (0.5-1.5); POTASSIUM 3.4 mmol/L (3.5-5.1)
[2022-10-20] MEDS: KCL 20 MEQ ERTAB PO PRN ×2 (04:46→06:11)
[2022-10-20] MEDS: INSULIN HUMULIN R 100 UNIT/ML 3ML SQ SCH ×4 (05:52→20:16)
[2022-10-20 08:05] VITALS: BP 115/74
[2022-10-20] MEDS: PANTOPRAZOLE 40 MG TAB DR PO SCH (08:41)
[2022-10-20] MEDS: CARVEDILOL 6.25 MG TABLET PO SCH ×2 (08:41→20:48)
[2022-10-20] MEDS: ASPIRIN 81MG CHEW TAB PO SCH (08:41)
[2022-10-20] MEDS: RIVAROXABAN 20 MG TABLET PO SCH (08:41)
[2022-10-20] MEDS: SACUBITRIL/VALSARTAN 1 EACH TABLET PO SCH ×2 (08:42→20:47)
[2022-10-20] MEDS: METOPROLOL SUCCINATE 50 MG TAB.SR.24H PO SCH (08:42)
[2022-10-20] MEDS: ADVAIR IH SCH ×2 (08:43→20:48)
[2022-10-20] MEDS: FLUTICASONE/VILANTEROL 1 EACH AER.POW.BA IH SCH (08:43)
[2022-10-20] MEDS: EMPAGLIFLOZIN 10MG TABLET PO SCH (08:57)
[2022-10-20 12:36] VITALS: BP 110/65
[2022-10-20] MEDS ORDERED: CARV6.25 PO (14:05)
[2022-10-20] MEDS: FUROSEMIDE 80 MG TABLET PO SCH (15:02)
[2022-10-20 16:47] VITALS: BP 93/63
[2022-10-20 20:04] VITALS: BP 112/55
[2022-10-20] MEDS: MONTELUKAST SODIUM 10 MG TAB PO SCH (20:47)
[2022-10-20] MEDS: ATORVASTATIN 40 MG TABLET PO SCH (20:48)
[2022-10-21] VITALS: BP 102/64
[2022-10-21 04:00] VITALS: BP 98/72
[2022-10-21 04:52] LABS: POTASSIUM 3.5 mmol/L (3.5-5.1)
[2022-10-21] MEDS: KCL 20 MEQ ERTAB PO PRN ×2 (05:46→08:37)
[2022-10-21] MEDS: INSULIN HUMULIN R 100 UNIT/ML 3ML SQ SCH (06:07)
[2022-10-21 08:07] VITALS: BP 116/75
[2022-10-21] MEDS: FLUTICASONE/VILANTEROL 1 EACH AER.POW.BA IH SCH (08:34)
[2022-10-21] MEDS: RIVAROXABAN 20 MG TABLET PO SCH (08:36)
[2022-10-21] MEDS: FUROSEMIDE 80 MG TABLET PO SCH (08:36)
[2022-10-21] MEDS: EMPAGLIFLOZIN 10MG TABLET PO SCH (08:36)
[2022-10-21] MEDS: ASPIRIN 81MG CHEW TAB PO SCH (08:36)
[2022-10-21] MEDS: PANTOPRAZOLE 40 MG TAB DR PO SCH (08:36)
[2022-10-21] MEDS: METOPROLOL SUCCINATE 50 MG TAB.SR.24H PO SCH (08:36)
[2022-10-21] MEDS: SACUBITRIL/VALSARTAN 1 EACH TABLET PO SCH (08:36)
[2022-10-21 08:37] VITALS: BP 116/75
[2022-10-21] MEDS: CARVEDILOL 6.25 MG TABLET PO SCH (08:37)
[2022-10-21] MEDS: ADVAIR IH SCH (08:37)
== END 2022-10-21 11:26 | disposition home or self-care (01) | DRG 291 ==
LOC: EDH 17:15 → DIRECT 17:16 → 2DH 22:05
PROVIDERS: ADMIT Internal Medicine; ATTEND Internal Medicine
DX: I13.0 Hypertensive heart and chronic kidney disease with heart failure and stage 1 through stage 4 chronic kidney disease, or unspecified chronic kidney disease (principal); I50.43 Acute on chronic combined systolic (congestive) and diastolic (congestive) heart failure; E87.1 Hypo-osmolality and hyponatremia; D68.69 Other thrombophilia; I48.21 Permanent atrial fibrillation; I25.10 Atherosclerotic heart disease of native coronary artery without angina pectoris; I25.5 Ischemic cardiomyopathy; I35.0 Nonrheumatic aortic (valve) stenosis; E11.22 Type 2 diabetes mellitus with diabetic chronic kidney disease; N18.30 Chronic kidney disease, stage 3 unspecified; I48.0 Paroxysmal atrial fibrillation; Z79.01 Long term (current) use of anticoagulants; I25.2 Old myocardial infarction; Z95.1 Presence of aortocoronary bypass graft; Z95.810 Presence of automatic (implantable) cardiac defibrillator; Z85.46 Personal history of malignant neoplasm of prostate; Z86.73 Personal history of transient ischemic attack (TIA), and cerebral infarction without residual deficits
CPT/HCPCS: 36415; 71045; 80048; 80053; 81001; 82948; 83735; 83880; 85025; G0378; J1815; J1940; J2260

== ENCOUNTER → 2022-11-26 | Outpatient (CLI) | payer OTHER ==
[~2022-11-26] MED LIST changes: +CARV6.25 PO; -DRON400T7 PO; -FURO40TA7 PO; +FURO80TA3 PO
[2022-11-26 12:25] LABS: CREATININE 1.2 mg/dL (0.5-1.5)
== END | disposition home or self-care (01) ==
LOC: LAB 09:49
PROVIDERS: ATTEND Internal Medicine Cardiovascular Disease
DX: I50.22 Chronic systolic (congestive) heart failure (principal)
CPT/HCPCS: 36415; 80048; 83880

== ENCOUNTER → 2022-11-29 | Outpatient (CLI) | payer OTHER | END | disposition home or self-care (01) | LOC: RAH 10:18 | PROVIDERS: ATTEND Internal Medicine Cardiovascular Disease | DX: R91.8 Other nonspecific abnormal finding of lung field (principal); J90 Pleural effusion, not elsewhere classified; I50.22 Chronic systolic (congestive) heart failure; I51.7 Cardiomegaly; M47.815 Spondylosis without myelopathy or radiculopathy, thoracolumbar region; Z95.0 Presence of cardiac pacemaker | CPT/HCPCS: 71046 ==

== ENCOUNTER → 2023-01-03 | Outpatient (CLI) | payer OTHER ==
[2023-01-03 12:01] LABS: CREATININE 1.3 mg/dL (0.5-1.5); POTASSIUM 3.6 mmol/L (3.5-5.1)
== END | disposition home or self-care (01) ==
LOC: LAB 08:33
PROVIDERS: ATTEND Internal Medicine Cardiovascular Disease
DX: I50.22 Chronic systolic (congestive) heart failure (principal)
CPT/HCPCS: 36415; 80048